=== PATIENT | male | born 1985 | race Caucasian/White ===

== ENCOUNTER 2016-12-22 05:35 | Emergency (ER) | payer SELFPAY ==
--- NOTE | 2016-12-22 05:50 | ED NURSING NOTES ---
Clinical Report - Nurses [facility] [address] [place] [address] 12/22/2016 5:37 [id number] Triage time 05:44. Acuity: LEVEL 4. Chief Complaint: COUGH (Left great toe red and painful). 05:48. Alert. SEPSIS SCREEN: Sepsis Screen: negative. Infection suspected/documented. --05:48 Chris Guzman R.N. 05:44 12/22/16. BP: 128/62. HR: 99. RR: 16. O2 saturation: 98% on room air. Temp: 98.5 F (oral). Pain level now: 11/10. --05:48 Chris Guzman R.N. Weight: 68 kg stated. Height/Length: 68 inches Per Patient. BMI: 22.8. --05:48 Chris Guzman R.N. Medications None. --05:46 Chris Guzman R.N. Medication/allergy information source: the patient. --05:48 Chris Guzman R.N. Allergies No Known Drug Allergy. --05:46 Chris Guzman R.N. History Arrived by private vehicle. Historian: patient. Accompanied by (Mom dropped off). Primary physician (In [place]). Onset. (1 weeks ago). Treatment COURT BAILIFF: None. PAST MEDICAL HX: Immunizations: up-to-date. SOCIAL HX: Current every day heavy tobacco smoker- less than 1 pack per day. Occasional alcohol use. History of drug use: marijuana. (daily). No infectious disease exposure. ABUSE ASSESSMENT: No report of abuse. FALL RISK ASSESSMENT: Fall risk assessment completed. No fall risk identified. NUTRITIONAL RISK ASSESSMENT: The nutritional risk assessment revealed no deficiencies. FUNCTIONAL ASSESSMENT: Functional assessment: no impairments noted. LEARNING NEEDS ASSESSMENT: The learning needs assessment revealed no barriers. SKIN INTEGRITY ASSESSMENT: Skin integrity risk assessment completed. No skin integrity risk identified. --05:48 Chris Guzman R.N. PROBLEMS: no known problems. ADDITIONAL SURGERIES: Skull repair . --05:47 Chris Guzman R.N. Interventions ID band on patient. To treatment room. --05:48 Chris Guzman R.N. PHYSICAL ASSESSMENT 05:49. Ambulatory to room. GENERAL / NEURO / PSYCH: Alert. Oriented X 4. HEENT: No facial asymmetry noted. Mucous membranes are pink. RESPIRATORY: Respirations not labored. SKIN: Skin intact. Skin is warm and dry. Normal skin turgor. --05:49 Chris Guzman R.N. NURSING PROGRESS NOTES 05:49. Head of bed elevated. Two patient identifiers checked. Call light placed in reach. Bed placed in lowest position. Brakes of bed on. Patient ready for evaluation- chart flagged. --05:49 Chris Guzman R.N. 05:57. The patient is calm and resting quietly. RESPIRATORY: No respiratory distress. SKIN: Skin is warm and dry. Skin color within normal limits. --06:03 Chris Guzman R.N. 05:54 12/22/2016 Keflex (Cephalexin) PO 500 mg given. Allergies verified and confirmed 5 rights. --06:04 Chris Guzman R.N. DISPOSITION / DISCHARGE Departure time: 0558. Condition at departure: stable. No learning barriers present. Discharge instructions provided and reviewed with the patient. Reviewed medication(s) side effects, precautions, dosing and course information. Prescription(s) given to the patient. Patient verbalized understanding. Written instructions provided in Turkish. The patient was discharged home and accompanied by parent. He left the Emergency Department ambulatory and via private vehicle. Parent driving. FALL RISK ASSESSMENT: Fall risk assessment completed. No fall risk identified. --06:03 Chris Guzman R.N. Locked/Released at 12/22/2016 6:06 by Chris Guzman R.N.
--- NOTE | 2016-12-22 05:50 | ED CLINICAL REPORT ---
Clinical Report - Physicians/Mid Levels [facility] [address] [place] [address] 12/22/2016 5:37 Patient: BARTOLOME PEREA Time Seen: 05:41; initial patient contact. Arrived- By private vehicle. Historian- patient. HISTORY OF PRESENT ILLNESS Chief Complaint: Injury to the left great toe. The injury happened about 1 week ago. (ingrown nail). Occurred at home. Patient is experiencing mild pain. Patient denies injury to the head or neck. REVIEW OF SYSTEMS The patient complains of pain on weight bearing. He has had swelling. No suspected foreign body, skin laceration, chills or fever. All systems otherwise negative, except as recorded above. PAST HISTORY Skull repair . SOCIAL HISTORY Current every day smoker. Occasional alcohol use. History of drug use: marijuana. ADDITIONAL NOTES The nursing notes have been reviewed. PHYSICAL EXAM Vital Signs: 12/22/2016 05:44 BP: 128/62. HR: 99. RR: 16. O2 saturation: 98%. Temp: 98.5 F. Pain level now: 6/10. Have been reviewed as normal. Appearance: Alert. Oriented X3. No acute distress. Skin: Skin intact. Skin warm and dry. Extremities: Tip of left great toe: mild erythema, tenderness and swelling. No ankle injury. Foot and ankle exam otherwise negative. Extremities otherwise negative. Neuro, Vascular and Tendons: Vascular status intact. Sensation intact. Motor intact. Tendon function intact. Gait: Normal gait. Neuro: Oriented X 3. No motor deficit. PROGRESS AND PROCEDURES Disposition: Discharged home in good and improved condition. Condition: good. CLINICAL IMPRESSION Paronychia left great toe. INSTRUCTIONS Prescription Medications: Keflex 500 mg: take 1 capsule orally every 6 hours for 7 days. No refill. Substitution is permissible. Follow-up: Follow up with your doctor in about one week. Call for an appointment. Screening today revealed the patient's blood pressure to be in the pre-hypertensive range. The patient should follow up with a primary care provider for blood pressure management. (Electronically signed by Familia Murray Dr. 12/22/2016 6:00)
--- NOTE | 2016-12-22 05:50 | ED NURSING NOTES ---
Clinical Report - Nurses [facility] [address] [place] [address] 12/22/2016 5:37 [id number] TRI[facility] Triage time 05:44. Acuity: LEVEL 4. Chief Complaint: COUGH (Left great toe red and painful). 05:48. Alert. SEPSIS SCREEN: Sepsis Screen: negative. Infection suspected/documented. --05:48 Chris Guzman R.N. 05:44 12/22/16. BP: 128/62. HR: 99. RR: 16. O2 saturation: 98% on room air. Temp: 98.5 F (oral). Pain level now: 11/10. --05:48 Chris uGzman R.N. Weight: 68 kg stated. Height/Length: 68 inches Per Patient. BMI: 22.8. --05:48 Chris Guzman R.N. Medications None. --05:46 Chris Guzman R.N. Medication/allergy information source: the patient. --05:48 Chris Guzman R.N. Allergies No Known Drug Allergy. --05:46 Chris Guzman R.N. History Arrived by private vehicle. Historian: patient. Accompanied by (Mom dropped off). Primary physician (In [place]). Onset. (1 weeks ago). Treatment STAFFING SPECIALIST: None. PAST MEDICAL HX: Immunizations: up-to-date. SOCIAL HX: Current every day heavy tobacco smoker- less than 1 pack per day. Occasional alcohol use. History of drug use: marijuana. (daily). No infectious disease exposure. ABUSE ASSESSMENT: No report of abuse. FALL RISK ASSESSMENT: Fall risk assessment completed. No fall risk identified. NUTRITIONAL RISK ASSESSMENT: The nutritional risk assessment revealed no deficiencies. FUNCTIONAL ASSESSMENT: Functional assessment: no impairments noted. LEARNING NEEDS ASSESSMENT: The learning needs assessment revealed no barriers. SKIN INTEGRITY ASSESSMENT: Skin integrity risk assessment completed. No skin integrity risk identified. --05:48 Chris Guzman R.N. PROBLEMS: no known problems. ADDITIONAL SURGERIES: Skull repair . --05:47 Chris Guzman R.N. Interventions ID band on patient. To treatment room. --05:48 Chris Guzman R.N. PHYSICAL ASSESSMENT 05:49. Ambulatory to room. GENERAL / NEURO / PSYCH: Alert. Oriented X 4. HEENT: No facial asymmetry noted. Mucous membranes are pink. RESPIRATORY: Respirations not labored. SKIN: Skin intact. Skin is warm and dry. Normal skin turgor. --05:49 Chris Guzman R.N. NURSING PROGRESS NOTES 05:49. Head of bed elevated. Two patient identifiers checked. Call light placed in reach. Bed placed in lowest position. Brakes of bed on. Patient ready for evaluation- chart flagged. --05:49 Chris Guzman R.N. 05:57. The patient is calm and resting quietly. RESPIRATORY: No respiratory distress. SKIN: Skin is warm and dry. Skin color within normal limits. --06:03 Chris Guzman R.N. 05:54 12/22/2016 Keflex (Cephalexin) PO 500 mg given. Allergies verified and confirmed 5 rights. --06:04 Chris Guzman R.N. DISPOSITION / DISCHARGE Departure time: 0558. Condition at departure: stable. No learning barriers present. Discharge instructions provided and reviewed with the patient. Reviewed medication(s) side effects, precautions, dosing and course information. Prescription(s) given to the patient. Patient verbalized understanding. Written instructions provided in Armenian. The patient was discharged home and accompanied by parent. He left the Emergency Department ambulatory and via private vehicle. Parent driving. FALL RISK ASSESSMENT: Fall risk assessment completed. No fall risk identified. --06:03 Chris Guzman R.N. Locked/Released at 12/22/2016 6:06 by Chris Guzman R.N.
--- NOTE | 2016-12-22 05:50 | ED CLINICAL REPORT ---
Clinical Report - Physicians/Mid Levels [facility] [address] [place] [address] 12/22/2016 5:37 Patient: BARTOLOME PEREA Time Seen: 05:41; initial patient contact. Arrived- By private vehicle. Historian- patient. HISTORY OF PRESENT ILLNESS Chief Complaint: Injury to the left great toe. The injury happened about 1 week ago. (ingrown nail). Occurred at home. Patient is experiencing mild pain. Patient denies injury to the head or neck. REVIEW OF SYSTEMS The patient complains of pain on weight bearing. He has had swelling. No suspected foreign body, skin laceration, chills or fever. All systems otherwise negative, except as recorded above. PAST HISTORY Skull repair . SOCIAL HISTORY Current every day smoker. Occasional alcohol use. History of drug use: marijuana. ADDITIONAL NOTES The nursing notes have been reviewed. PHYSICAL EXAM Vital Signs: 12/22/2016 05:44 BP: 128/62. HR: 99. RR: 16. O2 saturation: 98%. Temp: 98.5 F. Pain level now: 6/10. Have been reviewed as normal. Appearance: Alert. Oriented X3. No acute distress. Skin: Skin intact. Skin warm and dry. Extremities: Tip of left great toe: mild erythema, tenderness and swelling. No ankle injury. Foot and ankle exam otherwise negative. Extremities otherwise negative. Neuro, Vascular and Tendons: Vascular status intact. Sensation intact. Motor intact. Tendon function intact. Gait: Normal gait. Neuro: Oriented X 3. No motor deficit. PROGRESS AND PROCEDURES Disposition: Discharged home in good and improved condition. Condition: good. CLINICAL IMPRESSION Paronychia left great toe. INSTRUCTIONS Prescription Medications: Keflex 500 mg: take 1 capsule orally every 6 hours for 7 days. No refill. Substitution is permissible. Follow-up: Follow up with your doctor in about one week. Call for an appointment. Screening today revealed the patient's blood pressure to be in the pre-hypertensive range. The patient should follow up with a primary care provider for blood pressure management. (Electronically signed by Familia Murray Dr. 12/22/2016 6:00)
--- NOTE | 2016-12-22 06:06 | ED DISCHARGE INSTRUCTIONS ---
Patient: BARTOLOME PEREA General Instructions [facility] VisitID: [id number] [place] [address] 31y, M Registration Date/Time: 12/22/2016 Paronychia left great toe. INSTRUCTIONS Prescription Medications: Keflex 500 mg: take 1 capsule orally every 6 hours for 7 days. No refill. Substitution is permissible. Follow-up: Follow up with your doctor in about one week. Call for an appointment. Screening today revealed the patient's blood pressure to be in the pre-hypertensive range. The patient should follow up with a primary care provider for blood pressure management. ADDITIONAL INFORMATION Paronychia, Finger Or Toe Paronychia is an infection alongside the fingernail or toenail. It usually occurs from an opening in the cuticle or an ingrown toenail which lets bacteria under the skin. If there is pus present, the infection will need to be drained. If the infection is early, antibiotic treatment alone may be all that you need. Healing will take about 12 weeks. Home care The following guidelines will help you care for your wound at home: Twice a day for the first three days, clean and soak the toe or finger as follows: Soak your foot or hand in a tub of warm water for five minutes. Or, hold your toe or finger under a faucet of warm running water for five minutes. Clean any remaining crust away with soap and water using a cotton-tipped applicator. Apply antibiotic ointment to the infected area. Change the dressing daily or whenever it becomes soiled. If you were prescribed antibiotics, take them as directed until they are all gone. If your infection is on a toe, wear comfortable shoes with a lot of toe room, or open-toe sandals, while your toe is healing. You may use acetaminophen or ibuprofen to control pain, unless another medicine was prescribed.If you have chronic liver or kidney disease or ever had a stomach ulcer or GI bleeding, talk with your doctor before using these medicines. Follow-up care Follow up with your doctor or this facility as explained by our staff. When to seek medical care Get prompt medical attention if any of the following occur: Increasing redness, pain or swelling of the finger or toe Red streaks in the skin leading away from the wound Pus or fluid drainage Fever of 100.4F (38C) or higher, or as directed by your health care provider Cephalexin Monohydrate Oral tablet What is this medicine? CEPHALEXIN (sef a GENARO in) is a cephalosporin antibiotic. It is used to treat certain kinds of bacterial infections It will not work for colds, flu, or other viral infections. How should I use this medicine? Take this medicine by mouth with a full glass of water. Follow the directions on the prescription label. This medicine can be taken with or without food. Take your medicine at regular intervals. Do not take your medicine more often than directed. Take all of your medicine as directed even if you think you are better. Do not skip doses or stop your medicine early. Talk to your clay artist regarding the use of this medicine in children. While this drug may be prescribed for selected conditions, precautions do apply. What side effects may I notice from receiving this medicine? Side effects that you should report to your doctor or health daycare director as soon as possible: allergic reactions like skin rash, itching or hives, swelling of the face, lips, or tongue breathing problems pain or trouble passing urine redness, blistering, peeling or loosening of the skin, including inside the mouth severe or watery diarrhea unusually weak or tired yellowing of the eyes, skin Side effects that usually do not require medical attention (report to your doctor or health daycare director if they continue or are bothersome): gas or heartburn genital or anal irritation headache joint or muscle pain nausea, vomiting What may interact with this medicine? probenecid some other antibiotics What if I miss a dose? If you miss a dose, take it as soon as you can. If it is almost time for your next dose, take only that dose. Do not take double or extra doses. There should be at least 4 to 6 hours between doses. Where should I keep my medicine? Keep out of the reach of children. Store at room temperature between 59 and 86 degrees F (15 and 30 degrees C). Throw away any unused medicine after the expiration date. What should I tell my health care provider before I take this medicine? They need to know if you have any of these conditions: kidney disease stomach or intestine problems, especially colitis an unusual or allergic reaction to cephalexin, other cephalosporins, penicillins, other antibiotics, medicines, foods, dyes or preservatives or trying to get breast-feeding What should I watch for while using this medicine? Tell your doctor or health daycare director if your symptoms do not begin to improve in a few days. Do not treat diarrhea with over the counter products. Contact your doctor if you have diarrhea that lasts more than 2 days or if it is severe and watery. If you have diabetes, you may get a false-positive result for sugar in your urine. Check with your doctor or health daycare director. You have been given the following additional information: Paronychia Cephalexin Monohydrate Oral tablet (Electronically signed by Familia Murray Dr. 12/22/2016 6:00)
--- NOTE | 2016-12-22 06:06 | ED MED RECONCILIATION SUMMARY ---
Patient: BARTOLOME PEREA Medication Reconciliation Report [facility] VisitID: [id number] [address] [place] [address] 31y, M Registration Date/Time: 12/22/2016 Weight: 68.0 kg Height/Length: 68 in. BMI: 22.8 ALLERGIES: No Known Drug Allergy The patient's Home Medications are listed below: NONE. The source(s) of the original Home Medication information: patient The following Medications were given to the patient in the Emergency Department: Keflex [PO] PO 500 mg, administered: 12/22/2016 5:54:00 AM The following Medications were prescribed to the patient: Keflex 500 mg: take 1 capsule orally every 6 hours for 7 days. No refill. Substitution is permissible. -- Familia Murray Dr.
--- NOTE | 2016-12-22 06:06 | ED MAR SUMMARY ---
..... Medication Administration Record [facility] [address] [place] [address] Patient: BARTOLOME PEREA Visit ID: [id number] 31y, M Weight: 68.0 kg Height/Length: 68 in BMI: 22.8 ALLERGIES: No Known Drug Allergy Given 05:54 12/22/2016 Chris Guzman RKayleeNKaylee Medication Administered: KEFLEX [PO] (CEPHALEXIN), Dose: 500 mg PO. Medication Ordered: Keflex PO 500 mg (NOW).
--- NOTE | 2016-12-22 06:06 | ED MAR SUMMARY ---
..... Medication Administration Record [facility] [address] [place] [address] Patient: BARTOLOME PEREA Visit ID: [id number] 31y, M Weight: 68.0 kg Height/Length: 68 in BMI: 22.8 ALLERGIES: No Known Drug Allergy Given 05:54 12/22/2016 Chris Guzman RKayleeNKaylee Medication Administered: KEFLEX [PO] (CEPHALEXIN), Dose: 500 mg PO. Medication Ordered: Keflex PO 500 mg (NOW).
--- NOTE | 2016-12-22 06:06 | ED ORDER SUMMARY ---
..... Patient: BARTOLOME PEREA OrderSheet [facility] VisitID: [id number] [address] [place] [address] 31y, M Registration Date/Time: 12/22/2016 ORDER SHEET Weight: 68.0 kg (stated) Allergies: No Known Drug Allergy GENERAL ORDERS: MEDICATION ORDERS: Keflex PO 500 mg (NOW) (06:04 12/22/2016 Ellen Torres verbal order read back to Zena Ley) (6:04 Ellen Torres) IV FLUIDS: ORDER SHEET NOTES: [Electronically signed by Chris Guzman R.N. (06:06 12/22/2016)] [Electronically locked/signed by Chris Guzman R.N. (06:06 12/22/2016)]
--- NOTE | 2016-12-22 06:06 | ED ORDER SUMMARY ---
..... Patient: BARTOLOME PEREA OrderSheet [facility] VisitID: [id number] [address] [place] [address] 31y, M Registration Date/Time: 12/22/2016 ORDER SHEET Weight: 68.0 kg (stated) Allergies: No Known Drug Allergy GENERAL ORDERS: MEDICATION ORDERS: Keflex PO 500 mg (NOW) (06:04 12/22/2016 Ellen Torres verbal order read back to Zena Ley) (6:04 Ellen Torres) IV FLUIDS: ORDER SHEET NOTES: [Electronically signed by Chris Guzman R.N. (06:06 12/22/2016)] [Electronically locked/signed by Chris Guzman R.N. (06:06 12/22/2016)]
--- NOTE | 2016-12-22 06:06 | ED MED RECONCILIATION SUMMARY ---
Patient: BARTOLOME PEREA Medication Reconciliation Report [facility] VisitID: [id number] [address] [place] [address] 31y, M Registration Date/Time: 12/22/2016 Weight: 68.0 kg Height/Length: 68 in. BMI: 22.8 ALLERGIES: No Known Drug Allergy The patient's Home Medications are listed below: NONE. The source(s) of the original Home Medication information: patient The following Medications were given to the patient in the Emergency Department: Keflex [PO] PO 500 mg, administered: 12/22/2016 5:54:00 AM The following Medications were prescribed to the patient: Keflex 500 mg: take 1 capsule orally every 6 hours for 7 days. No refill. Substitution is permissible. -- Familia Murray Dr.
--- NOTE | 2016-12-22 06:06 | ED DISCHARGE INSTRUCTIONS ---
Patient: BARTOLOME PEREA General Instructions [facility] VisitID: [id number] [place] [address] 31y, M Registration Date/Time: 12/22/2016 Paronychia left great toe. INSTRUCTIONS Prescription Medications: Keflex 500 mg: take 1 capsule orally every 6 hours for 7 days. No refill. Substitution is permissible. Follow-up: Follow up with your doctor in about one week. Call for an appointment. Screening today revealed the patient's blood pressure to be in the pre-hypertensive range. The patient should follow up with a primary care provider for blood pressure management. ADDITIONAL INFORMATION Paronychia, Finger Or Toe Paronychia is an infection alongside the fingernail or toenail. It usually occurs from an opening in the cuticle or an ingrown toenail which lets bacteria under the skin. If there is pus present, the infection will need to be drained. If the infection is early, antibiotic treatment alone may be all that you need. Healing will take about 12 weeks. Home care The following guidelines will help you care for your wound at home: Twice a day for the first three days, clean and soak the toe or finger as follows: Soak your foot or hand in a tub of warm water for five minutes. Or, hold your toe or finger under a faucet of warm running water for five minutes. Clean any remaining crust away with soap and water using a cotton-tipped applicator. Apply antibiotic ointment to the infected area. Change the dressing daily or whenever it becomes soiled. If you were prescribed antibiotics, take them as directed until they are all gone. If your infection is on a toe, wear comfortable shoes with a lot of toe room, or open-toe sandals, while your toe is healing. You may use acetaminophen or ibuprofen to control pain, unless another medicine was prescribed.If you have chronic liver or kidney disease or ever had a stomach ulcer or GI bleeding, talk with your doctor before using these medicines. Follow-up care Follow up with your doctor or this facility as explained by our staff. When to seek medical care Get prompt medical attention if any of the following occur: Increasing redness, pain or swelling of the finger or toe Red streaks in the skin leading away from the wound Pus or fluid drainage Fever of 100.4F (38C) or higher, or as directed by your health care provider Cephalexin Monohydrate Oral tablet What is this medicine? CEPHALEXIN (sef a GENARO in) is a cephalosporin antibiotic. It is used to treat certain kinds of bacterial infections It will not work for colds, flu, or other viral infections. How should I use this medicine? Take this medicine by mouth with a full glass of water. Follow the directions on the prescription label. This medicine can be taken with or without food. Take your medicine at regular intervals. Do not take your medicine more often than directed. Take all of your medicine as directed even if you think you are better. Do not skip doses or stop your medicine early. Talk to your senior clinical research scientist regarding the use of this medicine in children. While this drug may be prescribed for selected conditions, precautions do apply. What side effects may I notice from receiving this medicine? Side effects that you should report to your doctor or health child care centre director as soon as possible: allergic reactions like skin rash, itching or hives, swelling of the face, lips, or tongue breathing problems pain or trouble passing urine redness, blistering, peeling or loosening of the skin, including inside the mouth severe or watery diarrhea unusually weak or tired yellowing of the eyes, skin Side effects that usually do not require medical attention (report to your doctor or health child care centre director if they continue or are bothersome): gas or heartburn genital or anal irritation headache joint or muscle pain nausea, vomiting What may interact with this medicine? probenecid some other antibiotics What if I miss a dose? If you miss a dose, take it as soon as you can. If it is almost time for your next dose, take only that dose. Do not take double or extra doses. There should be at least 4 to 6 hours between doses. Where should I keep my medicine? Keep out of the reach of children. Store at room temperature between 59 and 86 degrees F (15 and 30 degrees C). Throw away any unused medicine after the expiration date. What should I tell my health care provider before I take this medicine? They need to know if you have any of these conditions: kidney disease stomach or intestine problems, especially colitis an unusual or allergic reaction to cephalexin, other cephalosporins, penicillins, other antibiotics, medicines, foods, dyes or preservatives or trying to get breast-feeding What should I watch for while using this medicine? Tell your doctor or health child care centre director if your symptoms do not begin to improve in a few days. Do not treat diarrhea with over the counter products. Contact your doctor if you have diarrhea that lasts more than 2 days or if it is severe and watery. If you have diabetes, you may get a false-positive result for sugar in your urine. Check with your doctor or health child care centre director. You have been given the following additional information: Paronychia Cephalexin Monohydrate Oral tablet (Electronically signed by Familia Murray Dr. 12/22/2016 6:00)
== END 2016-12-22 05:57 | disposition home or self-care (01) ==
LOC: ED SRH 05:35
DX: L03.031 Cellulitis of right toe (principal); X58.XXXA Exposure to other specified factors, initial encounter; Y93.9 Activity, unspecified; Y99.9 Unspecified external cause status; Y92.009 Unspecified place in unspecified non-institutional (private) residence as the place of occurrence of the external cause; F17.200 Nicotine dependence, unspecified, uncomplicated